=== PATIENT | male | born 1990 | race Caucasian/White ===

== ENCOUNTER 2019-06-11 18:12 | Emergency (ER) | payer MEDICAID ==
[2019-06-11 18:21] VITALS: BP 131/76; PULSE 101; RESP 18; TEMP 98.4
--- NOTE | 2019-06-11 18:40 | ED ---
Animal Bite HPI - General Chief Complaint: Animal Bite Stated Complaint: Laceration Time Seen by Provider: 06/11/19 18:27 Source: patient Mode of arrival: ambulatory Limitations: no limitations - History of Present Illness Initial Comments: Patient is a 28-year-old male presenting to the emergency Department with complaints of an animal bite. Patient states he was trying to break up 2 dogs that were fighting and has a bite wound to his right middle finger as well as a superficial wound to his left hand. Patient states his tetanus vaccine is up-to-date. Patient states the dog that bit him is a neighbor's dog and he is unsure of the vaccination status. They did file a complaint with the police. Patient did wash the wound for several minutes with soap and water just after the incident. He denies fever or chills. Patient has no other complaints at this time. - Related Data Previous Rx's Medication Instructions Recorded Amoxicillin/Potassium Clav 1 tab PO BID 7 Days #14 tab 06/11/19 [Augmentin 875-125 Tablet] Allergies Allergy/AdvReac Type Severity Reaction Status Date / Time No Known Allergies Allergy Verified 06/11/19 18:21 Review of Systems ROS Statement: Those systems with pertinent positive or pertinent negative responses have been documented in the HPI. ROS Other: All systems not noted in ROS Statement are negative. Past Medical History Past Medical History: No Reported History History of Any Multi-Drug Resistant Organisms: None Reported Past Surgical History: No Surgical Hx Reported Past Psychological History: No Psychological Hx Reported Smoking Status: Never smoker Past Alcohol Use History: Occasional Past Drug Use History: None Reported General Exam - General Exam Comments Initial Comments: GENERAL: Well-appearing, well-nourished and in no acute distress. HEAD: Atraumatic, normocephalic. EYES: Pupils equal round and reactive to light, extraocular movements intact, sclera anicteric, conjunctiva are normal. ENT: TMs normal, nares patent, oropharynx clear without exudates. Moist mucous membranes. NECK: Normal range of motion, supple without lymphadenopathy or JVD. LUNGS: Breath sounds clear to auscultation bilaterally and equal. No wheezes rales or rhonchi. HEART: Regular rate and rhythm without murmurs, rubs or gallops. ABDOMEN: Soft, nontender, normoactive bowel sounds. No guarding, no rebound. No masses appreciated. : Deferred EXTREMITIES: Patient has full range of motion of both hands and wrists. No pain with palpation. Neurovascular intact. Normal range of motion, no pitting or edema. No clubbing or cyanosis. NEUROLOGICAL: Cranial nerves II through XII grossly intact. Normal speech, normal gait. PSYCH: Normal mood, normal affect. SKIN: Warm, Dry, normal turgor, no rashes. Patient has a superficial bite wound to the right middle finger as well as to the left hand, dorsal aspect. There is no active bleeding. Wounds do not need sutures. Limitations: no limitations Course Vital Signs 06/11/19 18:19 Temperature 98.4 F Pulse Rate 101 H Respiratory 18 Rate Blood Pressure 131/76 O2 Sat by Pulse 99 Oximetry Medical Decision Making - Medical Decision Making Patient is a 28-year-old male presenting with a dog bite wound to the right middle finger as well as the left hand. Both wounds are superficial, no active bleeding. Patient's tetanus vaccine is up-to-date. Patient's wound were cleaned with Betadine and water solution. Patient is unsure of the dogs vaccinations status. Report was filed with the police and dog will be quarantined. Patient will hold on the rabies vaccine right now. Patient will be started on Augmentin. Patient is stable for discharge at this time. He is agreement with this plan of care. Strict return parameters were discussed with the patient and he verbalized understanding. Case discussed with Dr. Moyer. Disposition Clinical Impression: Open wound of right middle finger due to dog bite, Dog bite of left hand Disposition: HOME SELF-CARE Condition: Stable Instructions (If sedation given, give patient instructions): Animal Bite (ED) Additional Instructions: Please return to the Emergency Department if symptoms worsen or any other concerns. Follow-up with animal control as discussed. Take antibiotics as prescribed. Prescriptions: Amoxicillin/Potassium Clav [Augmentin 875-125 Tablet] 1 tab PO BID 7 Days #14 tab Is patient prescribed a controlled substance at d/c from ED?: No Referrals: None,Stated [Primary Care Provider] - 1-2 days
[2019-06-11] MEDS ORDERED: RABIES IMMUNE GLOB 300 UNIT/ML 1 ML VIAL IM ONE (19:02)
[2019-06-11] MEDS ORDERED: RABIES VACCINE (PCEC) 2.5 UNIT KIT IM ONE (19:02)
== END 2019-06-11 19:17 | disposition home or self-care (01) ==
LOC: EC 18:12
DX: S60.572A Other superficial bite of hand of left hand, initial encounter (principal); S60.472A Other superficial bite of right middle finger, initial encounter; W54.0XXA Bitten by dog, initial encounter
CPT/HCPCS: 99283